=== PATIENT | female | born 1945 | race Caucasian/White ===

== ENCOUNTER 2016-05-20 10:45 | Observation (INO) | payer MEDICARE, OTHER ==
[2016-05-20 11:47] LABS: ABSOLUTE NEUTROPHIL COUNT 3.4 K/mm3 (1.8-7.7); BASO % 0.8 % (0.2-1.0); EOS # 0.2 (0.0-0.5); HEMATOCRIT 41.1 % (37.0-47.0); HEMOGLOBIN 13.8 gm/l (12.0-16.0); IMM NEUT% 0.6 % (0-1); LYMPH # 0.9 (1.0-4.8); LYMPH % 18.6 % (15-45); MEAN CORPUSCULAR HEMOGLOBIN 31.2 pg (27.0-31.0); MEAN CORPUSCULAR HGB CONC 33.6 g/dl (33.0-37.0); MEAN PLATELET VOLUME 10.6 fl (7.4-10.4); MONO # 0.4 (0.0-0.8); MONO % 7.6 % (4-12); NEUT % 68.4 % (43-75); PLATELET COUNT 227 K/mm3 (130-400); RED CELL DISTRIBUTION WIDTH 13.7 % (11.5-14.5); URINE BILIRUBIN NEGATIVE (NEGATIVE); URINE BLOOD TRACE (NEGATIVE); URINE GLUCOSE (UA) NEGATIVE (NEGATIVE); URINE LEUKOCYTE ESTERASE NEGATIVE (NEGATIVE); URINE NITRITE NEGATIVE (NEGATIVE); URINE PROTEIN NEGATIVE (NEGATIVE); URINE UROBILINOGEN NORMAL (0-1 mg/dl)
[2016-05-20 11:49] LABS: URINE APPEARANCE CLEAR; URINE COLOR YELLOW
[2016-05-20 12:00] LABS: URINE BACTERIA TRACE; URINE RBC 0-2 /hpf; URINE WBC RARE /hpf
[2016-05-20 12:17] LABS: TROPONIN I < 0.01 ng/ml (0.0-0.06)
--- NOTE | 2016-05-20 12:17 | US ---
RIGHT LOWER EXTREMITY VENOUS ULTRASOUND HISTORY: Right leg swelling. Sonography of the right lower extremity was performed, with a focus on the venous structures. FINDINGS: COMMON FEMORAL VEIN: Patent and compressible. SUPERFICIAL FEMORAL VEIN: Patent and compressible. POPLITEAL VEIN: Patent and compressible. PROXIMAL CALF VEINS: Patent and compressible. RESPIRATORY AUGMENTATION OF FLOW: Present. ABNORMAL FLUID COLLECTIONS: None identified. IMPRESSION: No sonographic evidence of right lower extremity deep venous thrombosis. Results were electronically transmitted to the electronic medical record at 05/12/2016 at 1214 hours.
[2016-05-20 12:26] LABS: THYROID STIMULATING HORMONE 4.01 uIU/ml (0.34-5.60)
[2016-05-20 12:27] LABS: ALB/GLOB RATIO 1.3 (>1.0); ALBUMIN 3.6 gm/dL (3.5-5.7); CALCIUM 8.8 mg/dL (8.6-10.3); MAGNESIUM 1.9 mg/dL (1.9-2.7)
[2016-05-20 15:59] VITALS: BMI 28.5
[2016-05-20] MEDS ORDERED: MENTHOL/CETYLPYRD 1 EACH LOZENGE PO PRN (16:32)
[2016-05-20] MEDS ORDERED: SODIUM CHLORIDE 0.9% 100 ML IV PRN (16:32)
[2016-05-20] MEDS ORDERED: BLISTEX LIPSTICK 1 EACH TP PRN (16:32)
[2016-05-20] MEDS ORDERED: MAGNESIUM HYDROXIDE 30 ML UDCUP PO PRN (16:32)
[2016-05-20] MEDS ORDERED: BISACODYL 5 MG TABLET.EC PO PRN (16:32)
[2016-05-20] MEDS ORDERED: BISACODYL 10 MG SUP PR PRN (16:32)
[2016-05-20] MEDS ORDERED: DIPHENHYDRAMINE HCL 25 MG CAPSULE PO PRN (16:41)
[2016-05-20] MEDS ORDERED: ACETAMINOPHEN 325 MG TABLET PO PRN (16:41)
[2016-05-20] MEDS ORDERED: LORAZEPAM 1 MG TABLET PO PRN (16:43)
[2016-05-20] MEDS ORDERED: PUMP TUBING ONE (17:38)
[2016-05-20] MEDS: SODIUM CHLORIDE 0.9% 1,000 ML IV SCH (18:10)
--- NOTE | 2016-05-20 18:17 | HP ---
MICAH NATHAN : 1945 [id number] DATE OF ADMISSION: May 20, 2016 CHIEF COMPLAINT: Near syncope. PRIMARY CARE PROVIDER: Alivia Mo M.D. HISTORY OF PRESENT ILLNESS: Patient is a 71-year-old female who has a history of anxiety, reflux and a possible transient ischemic attack several years ago who presents with episodes with episodes of near syncope. She states that she will have sudden onset of lightheadedness, will feel cold, weak and clammy afterwards for a few seconds. This lasts for several minutes before she starts to feel better, and then it is completely resolved. This began to occur for her approximately one week ago, has occurred at about five times in the past one week. Patient became concerned. She did see her primary care provider, Dr. Mo, who ordered a head CT for her as well as a carotid artery ultrasound, and she was instructed to go to the emergency room should this occur again. Patient did have an episode that she feels was more severe earlier today with near syncope. Her was around to catch her. She notes that her blood pressure was low with the 90s systolic when she checked it afterwards. She does note some increased stress at home from multiple sources and declines to elaborate further. MEDICATIONS: Patient is takin. Estradiol 1 mg orally daily. 2. Omeprazole 20 mg orally daily in the morning. 3. Aspirin 81 mg orally daily. PAST MEDICAL HISTORY: Is positive for: 1. A possible transient ischemic attack several years ago. Patient is unsure whether or not that diagnosis was correct. 2. She has some anxiety worsened by things like flying, MRI or CT tubes. 3. She has diverticulosis with a history of colon resection. 4. She has gastroesophageal reflux disease which is well controlled on omeprazole. 5. Edema which she states is not flaring currently. 6. Patient does have a history of dysplasia of the breast for which they did a subcutaneous breast reduction and implants at the age of 34. PAST SURGICAL HISTORY: 1. Positive for partial mastectomy with reconstruction at age 34. 2. Positive for cholecystectomy. 3. Positive for an inguinal hernia repair in 1971. 4. Positive for hysterectomy. 5. Positive for colon surgery in 2014, partial resection. SOCIAL HISTORY: Patient denies any tobacco, denies any alcohol, denies any drug use. She lives with her . She has two adult children. FAMILY HISTORY: Positive for a son who has coronary artery disease and positive for one brother with coronary artery disease and recently of this and one brother has hypertension. ALLERGIES: PATIENT IS APPARENTLY ALLERGIC TO PENICILLINS. REVIEW OF SYSTEMS: A full 14-point review of systems is performed, positive as per History of Present Illness for near syncope, some decreased energy and malaise, edema which has apparently resolved, and shortness of breath when her near syncope occurred, though this is not occurring now. All other review of systems is negative. PHYSICAL EXAM: VITAL SIGNS: Patient's blood pressure is 151/75, pulse is 84, respiratory rate 18, saturating 97% on room air, temperature was 98.6. GENERAL: Patient is lying in bed in no acute distress. HEENT: Normocephalic, atraumatic. Mucous membranes moist. Oropharynx clear. Eyes, extraocular movements intact. Eyes, pupils equal, round and reactive to light and accommodation. HEART: Regular rate and rhythm. No murmurs, no rubs. Positive S1 and S2. SKIN: Warm, dry and intact. LUNGS: Clear to auscultation bilaterally. No wheezes, rales or rhonchi. ABDOMEN: Soft, nontender, nondistended. Positive bowel sounds. No hepatosplenomegaly. EXTREMITIES: No cyanosis, clubbing or edema. NEUROLOGIC: Patient is awake, alert and oriented. She is moving all extremities. PSYCHOLOGIC: Patient's affect is full and appropriate, although she becomes agitated in discussion of a possible CT and requests medication for anxiety. LABORATORIES: Urinalysis is essentially negative. CBC shows a white count of 5.0, hemoglobin of 13.8, hematocrit 41.4, and a platelet count of 227 with no left shift. BNP is 94. TSH is 4.01 and troponin is less than 0.01. Magnesium is 1.9. Electrolytes show a glucose of 101, BUN 15, creatinine is 0.6, GFR is 99, sodium is 133, potassium 3.5, chloride is 100, CO2 is 24, calcium is 8.8. Liver function tests are all within normal limits. DIAGNOSTIC IMAGING: She did have a duplex scan of the lower extremities to rule out deep venous thrombosis which was negative. ASSESSMENT AND PLAN: 1. Near syncope. Patient has been having these episodes of near syncope. Sounds to me that these are vasovagal and may be stress related and/or blood pressure related. However, given the fact that this is occurring frequently, and the patient is worried about it, she is going to be observed overnight on telemetry to rule out any arrhythmias although I have informed her that it is possible that we do not catch any of these events while she is here in the hospital. I will perform the planned CT of the head as well as carotid ultrasound that was planned by Dr. Mo as well as I will be doing an echocardiogram for the patient prior to her discharge to rule out any structural abnormalities. She will be getting some gentle IV fluids of normal saline at 75, and we will be monitoring and adjusting course if necessary. 2. Anxiety. Patient will be getting lorazepam for her anxiety in regards to the CT scan. 3. Reflux. Patient's omeprazole will be held and she will be given pantoprazole while she is here in the hospital 40 mg orally daily. 4. Deep venous thrombosis prophylaxis. Since the patient will likely on be with us for 24 hours and she is encouraged to ambulate, she will not be receiving deep venous thrombosis prophylaxis aside from ambulation. She is low risk. 5. Code status. Patient wishes to be FULL CODE. Cc: Alivia Mo M.D.
--- NOTE | 2016-05-20 18:57 | US ---
CAROTID ULTRASOUND HISTORY: Near syncope. Sonography was performed of the extracranial vessels with a focus on the arterial structures. Measurement of carotid stenosis is based on velocity parameters that correlate the residual internal carotid diameter with [place] Symptomatic Carotid Endarterectomy Trial (NASCET)-based stenosis levels. GRAYSCALE IMAGING: Mild intimal thickening. No gross stenosis of the proximal internal carotid arteries by visual inspection.. ? PULSED-WAVE DOPPLER DATA (peak systolic velocity/end-diastolic velocity [cm/s]) Right proximal CCA: 87/20 Right distal CCA: 73/23 Right proximal ICA: 55/21 Right distal ICA: 92/35 Right ECA: 71/8. Right vertebral: 58/diastolic velocity not acquired. Left proximal CCA: 88/28 Left distal CCA: 75/22 Left proximal ICA: 60/24 Left distal ICA: 91/30 Left ECA: 76/13. Left vertebral: 29/diastolic velocity not acquired. ICA/CCA RATIOS: 1.26 on the right, 1.21 on the left. VERTEBRAL ARTERY FLOW: Antegrade. IMPRESSION: No hemodynamically significant stenosis of the internal carotid arteries. Antegrade flow of the vertebral arteries..
[2016-05-20] MEDS ORDERED: DOCUSATE SODIUM 100 MG CAPSULE PO SCH (21:00)
[2016-05-21 06:00] LABS: ABSOLUTE NEUTROPHIL COUNT 3.2 K/mm3 (1.8-7.7); BASO % 0.8 % (0.2-1.0); EOS # 0.2 (0.0-0.5); EOS % 4.1 % (0.9-2.9); HEMATOCRIT 42.9 % (37.0-47.0); HEMOGLOBIN 14.2 gm/l (12.0-16.0); IMM NEUT% 0.4 % (0-1); LYMPH # 1.2 (1.0-4.8); LYMPH % 22.8 % (15-45); MEAN CELL VOLUME 92.9 fl (81.0-99.0); MEAN CORPUSCULAR HEMOGLOBIN 30.7 pg (27.0-31.0); MEAN CORPUSCULAR HGB CONC 33.1 g/dl (33.0-37.0); MEAN PLATELET VOLUME 10.9 fl (7.4-10.4); MONO # 0.5 (0.0-0.8); MONO % 10.3 % (4-12); NEUT % 61.6 % (43-75); PLATELET COUNT 208 K/mm3 (130-400); RED CELL DISTRIBUTION WIDTH 13.9 % (11.5-14.5)
[2016-05-21 06:19] LABS: CALCIUM 8.5 mg/dL (8.6-10.3)
[2016-05-21 07:28] VITALS: BP 118/70
[2016-05-21] MEDS: SODIUM CHLORIDE 0.9% 1,000 ML IV SCH (07:57)
--- NOTE | 2016-05-21 08:14 | CT ---
HEAD CT WITHOUT CONTRAST HISTORY: Near syncope. No intravenous contrast administered. Contiguous axial images acquired from skull base to vertex. COMPARISON: 09/09/2004. BRAIN VOLUME:Grossly unremarkable for patient age. VENTRICULAR SIZE:No gross ventriculomegaly. FOCAL MASS EFFECT:None. ACUTE INTRACRANIAL HEMORRHAGE:None. CALVARIUM:Grossly intact. VISIBLE PARANASAL SINUSES AND MASTOID AIR CELLS:Grossly clear. ORBITS: Evidence of cataract surgery. IMPRESSION: No gross mass effect, ventriculomegaly, or acute intracranial hemorrhage.
--- NOTE | 2016-05-21 08:34 | PDOC43 ---
- Subjective Chief Complaint: near-syncopal events pt states she is feeling well. no new c/o. she did have one episode of lightheadedness last night, not reported at time of event and not as severe as before. was on the phone with her grand-daughter. no stress at the time. She did on tele have some tachy, associated with the period before her CT scan. she did note anxiety then. She notes no sx then. She also had on tele only a few seconds of SVT like rythm. otherwise non-tachy sinus rythm on tele Subjective: Reports Tolerating Diet Well, Reports Adequate Oral Intake, Reports Flatus, Reports Urinating Without Difficulty, Denies Shortness of Breath, Denies Cough, Denies Chest Pain, Denies Abdominal Pain, Denies Nausea, Denies Vomiting, Denies Fever, Denies Chills - Objective Vital Signs Temperature 97.8 F 05/21/16 07:27 Pulse Rate 74 05/21/16 07:27 Respiratory Rate 18 05/21/16 07:27 Blood Pressure 118/70 05/21/16 07:27 O2 Saturation by Pulse Oximetry 96 05/21/16 07:27 Oxygen Delivery Method Room Air Oxygen Flow Rate 0 Intake and Output 05/19/16 05/20/16 05/21/16 23:59 23:59 23:59 Intake Total 1190 Output Total 200 Balance 990 General: Alert, Oriented x3, Cooperative HEENT: Atraumatic, Mucous membr. moist/pink Lungs: Clear to Auscultation Bilaterally, Normal Air Movement, No Diminished at Bases Cardiovascular: Regular Rate and Rhythm, Normal S1, Normal S2, No Irregular, No Murmur, No Gallops, No Rubs Abdomen: Soft, Normal Bowel Sounds, Non-Distended, No Tenderness Extremities: Cyanosis, Edema, Tenderness Neurological: Normal Speech Psych/Mental Status: Normal Affect, Normal Mood Laboratory 05/21/16 05:10 05/21/16 05:10 05/21/16 05:10 Estimated GFR 99 H Calcium 8.5 L Current Medications: Current meds reviewed in EMR. - Problems: Assessment/Plan (1) Near syncope Status: Acute Assessment/Plan: unclear cause, not correlating with cardiac issues on tele. may be hypotensive or psychosomatic. CT head neg, carotid US neg, duplex of legs neg for DVT. pending Echo. plan PT eval today too (2) Anxiety Status: Chronic Assessment/Plan: lorazepam prior to procedures. not taking at home save for plane rides etc. (3) Acid reflux Status: Chronic Assessment/Plan: on PPI VTE Prophylaxis: low risk, no prohpylaxis now Disposition: to home today after PT and echo if clear
[2016-05-21] MEDS ORDERED: ESTRADIOL 0.5 MG TABLET PO SCH (09:00)
[2016-05-21] MEDS ORDERED: ASPIRIN (ENTERIC COATED) 81 MG TABLET.EC PO SCH (09:00)
[2016-05-21] MEDS ORDERED: PANTOPRAZOLE 40 MG TABLET DR PO SCH (09:00)
--- NOTE | 2016-05-21 11:05 | DS ---
MICAH NATHAN [id number] DATE OF : 1945 DATE OF ADMISSION: 05/20/2016 DATE OF DISCHARGE: 05/21/2016 ADMIT DIAGNOSES: 1. Near syncope. 2. Anxiety. 3. Reflux. DISCHARGE DIAGNOSES: 1. Near syncope. 2. Anxiety. 3. Reflux. PROCEDURES AND IMAGIN. In the emergency department on 05/20/2016 the patient had a duplex scan of the bilateral lower extremities which ruled out deep venous thrombosis. She had a CT scan of the head which was negative. 2. She had a carotid ultrasound bilaterally which was also negative. 3. An echocardiogram was not done due to it being the weekend, and will be done as an outpatient. HISTORY OF PRESENT ILLNESS: Please see history and physical dictated. In short, this is a 71-year-old female who was having episodes of near syncope at an increasing rate for the past week. It was observed overnight on telemetry to rule out more dire causes and for a workup. HOSPITAL COURSE: Hospital course by problem as follows: 1. Near syncope. The patient has apparently been having increased episodes of near syncope for the past week or two. She was observed overnight on telemetry. She did have some tachycardia on the telemetry, but this correlated with an anxiety in regards to a CT scan that she was going to be doing, and resolved after the CT scan was done. She had one very short episode of several seconds of supraventricular tachycardia like activity, but then it rapidly resolved. The patient states she did have an episode that was not reported initially to the nurse on 05/20/2016 in the evening while she was talking with her granddaughter on the phone. She denies any stress at that time, states that it was only several seconds of lightheadedness that then passed, and this was much milder than previous episode. CT scan of the head was normal. Carotid ultrasound was normal as well. She is thus discharged with instructions to follow up with her primary care provider for further management. An event monitor may be helpful, although noting that this episode did occur while she was on telemetry, nothing was found. Echocardiogram is recommended to be done as an outpatient. 2. Anxiety. Patient does have a history of anxiety with procedures, and travel and such, she did get lorazepam prior to her CT scan and noted some anxiety symptoms, but it was well controlled. 3. Reflux. Patient was given pantoprazole while here in the hospital, but was discharged to resume her home omeprazole. Symptoms were not manifesting during her time her. DISCHARGE MEDICATIONS: The patient is discharged with instructions to resume her home medication of: 1. Estradiol 1 mg by mouth daily. 2. Omeprazole 20 mg by mouth daily. 3. Aspirin 81 mg by mouth daily. ACTIVITY: Ad kan, no driving for 24 hours. DIET: Regular. FOLLOW UP: Patient is to follow up with her primary care provider, Dr. Mo in approximately 2 to 3 days. Recommendation for echocardiogram to be done as an outpatient. CONDITION ON DISCHARGE: Stable. DISPOSITION: To home. & [id number] SHWETA/dax Cc: Alivia Mo MD
== END 2016-05-21 10:10 | disposition home or self-care (01) ==
LOC: ED 10:45 → MS 14:46
PROVIDERS: ADMIT Family Medicine; ATTEND Family Medicine
DX: R55 Syncope and collapse (principal); F41.9 Anxiety disorder, unspecified; K21.9 Gastro-esophageal reflux disease without esophagitis; K57.90 Diverticulosis of intestine, part unspecified, without perforation or abscess without bleeding
CPT/HCPCS: 83880; 85025 ×2; 80048; 80053; 83735; 84443; 84484; 81001; 36415; 70450; 99284; 93005; 93880; 93971; 99285; A9270 ×2; J7030 ×2; G0378 ×2